=== PATIENT | female | born 1955 | race Caucasian/White ===

== ENCOUNTER 2024-05-23 07:47 | Outpatient (CLI) | payer OTHER, SELFPAY ==
--- NOTE | ~2024-05-23 | CT_ITS ---
CT abdomen pelvis w con Ordering provider: Eloisa Perez, TARIK History: 69 years Female with . PULMONARY EMBALISM . Comparison: None. Technique: CT abdomen and pelvis with IV and without oral contrast. Automated exposure control and it erative reconstruction technique were employed. The dose-length product was 948.88 mGy-cm. 100 mL Omn ipaque 350 was given IV. Findings: VISUALIZED LOWER CHEST: Minimal dependent atelectatic changes. UPPER ABDOMINAL ORGANS: Liver: Normal. Gallbladder: Status post cholecystectomy. Spleen: 1.5 cm Enhancing lesion seen in the spleen which may be a hemangioma. Follow-up advised. Nathanael gn calcifications are seen. Stomach/duodenum: Small sliding hiatus hernia.. Pancreas: Normal. Adrenals: Normal. Kidneys: Small cysts in the upper poles are noted. PELVIC ORGANS: The bladder is normal. BOWEL AND MESENTERY: Colon: No evidence of diverticulitis. Normal appendix. Small Bowel: Normal. No obstruction. Peritoneum/mesentery: No free air or free fluid. No mesenteric lymphadenopathy. RETROPERITONEUM: Mild atheromatous disease of the abdominal aorta. No retroperitoneal lymphadenopat hy. MUSCULOSKELETAL: Superficial soft tissues: The superficial soft tissues are normal. Bones: Age appropriate degenerative changes of the spine. Bilateral sacroiliitis. Levoscoliosis. IMPRESSION: 1. No evidence of appendicitis, diverticulitis or intestinal obstruction. 2. 1.5 cm enhancing lesion in the spleen which may be a hemangioma. Follow-up advised. 3. Small sliding hiatus. Reviewed, dictated and finalized at location A. SUPERVISOR
[2024-05-23 08:11] LABS: Estimated Glomerular Filt Rate > 60
--- OUTSIDE RECORDS SUMMARY | 2024-05-30 01:15 | XMS_ITS | Clinical Summary ---
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
--- OUTSIDE RECORDS SUMMARY | 2024-05-30 01:15 | XMS_ITS | Clinical Summary ---
Author Organization [facility] Address [address] [place] [address]. [place] [address] [place] [address] Care Team Providers Care Customer Support Associate Name Role Phone Ramone Partida MD, [facility] Primary Care Provider [phone] Allergies No known active allergies Medications apixaban (ELIQUIS) 5 MG tablet Take 1 tablet (5 mg total) by mouth 2 (two) times daily. Active albuterol sulfate HFA 108 (90 Base) MCG/ACT inhaler Inhale 2 puffs into the lungs every 6 (six) hours as needed for Wheezing or Shortness of breath. Active amLODIPine (NORVASC) 10 MG tablet Take 1 tablet (10 mg total) by mouth daily. Active empagliflozin (JARDIANCE) 10 MG tablet Take 1 tablet (10 mg total) by mouth daily. Active FLUoxetine (PROZAC) 20 MG capsule Take 2 capsules (40 mg total) by mouth daily. Active SEMAGLUTIDE,0.2 5 OR 0.5MG/DOS, SC Inject 0.5 mg into the skin once a week. Active tiotropium bromide-olodate rol (STIOLTO RESPIMAT) 2.5-2.5 MCG/ACT inhaler Inhale 2 puffs into the lungs daily. Active atenolol (TENORMIN) 50 MG tablet Take 1 tablet (50 mg total) by mouth daily. Hold for HR <60 30 tablet 4 Active losartan (COZAAR) 100 MG tablet Take 1 tablet (100 mg total) by mouth daily. 30 tablet 4 Active Active Problems Problem Noted Date Diagnosed Date Primary hypertension 04/23/2024 Type 2 diabetes mellitus wit hout complication, without long-term current use of insulin ([facility]) 04/23/2024 Pneumonia 04/22/2024 TIA (transient ischemic attack) 04/22/2024 Encounters Date Type Department Care Team Description 05/17/2024 Telephone [facility] [place] [address] [place] [address] Philly Ford, RMA Consult 04/22/2024 7:58 PM BOX CAR WASHER - 04/24/2024 1:59 PM BOX CAR WASHER Hospital Encounter [facility] Med/Surg [address] [place] [address] Rosanna Alva MD Dodt, Karma R, FUNCTIONAL DIRECTOR Discharge Disposition: Home or Self Care (Routine Discharge) 04/22/2024 12:49 PM BOX CAR WASHER - 04/22/2024 7:21 PM BOX CAR WASHER Emergency [facility] Emergency Services [facility] [place] [address] Sherrill Phillip DO Neurologic Problem Discharge Disposition: Transfer to Acute Care Hospital 04/22/2024 Travel from Last 3 Months Social History Tobacco Use Types Packs/Day Years Used Date Smoking Tobacco: Never Passive Smoke Exposure: Never Smokeless Tobacco: Never Tobacco Cessation:Counseling Given: Not Answered Alcohol Use Standard Drinks/Week Comments Not Currently 0 (1 standard drink = 0.6 oz pur e alcohol) [facility] Utilities Answer Date Recorded In the past 12 months has [facility] [employer], gas, oil, or water [employer] threatened to shut off services in your home? No 04/22/2024 Humiliation, Afraid, Rape, and Kick questionnair e Answer Date Recorded Within the last year, have y ou been afraid of your partner or ex-partner? No 04/22/2024 Within the last year, have y ou been humiliated or emotionally abused in other ways by your partner or ex-partner? No Within the last year, have y ou been kicked, hit, slapped, or otherwise physically hurt by your partner or ex-partner? No 04/22/2024 Within the last year, have y ou been raped or forced to have any kind of sexual activity by your partner or ex-partner? No 04/22/2024 Overall Financial Resource Strain (CARDIA) Answe r Date Recorded How hard is it for you to pa y for the very basics like food, housing, medical care, and heating? Not hard at all 04/22/2024 Hunger Vital Sign Answer Date Recorded Within the past 12 months, y ou worried that your food would run out before you got the money to buy more. Never true 04/22/20 24 Within the past 12 months, t he food you bought just didn't last and you didn't have money to get more. Never true 04/22/2024 PRAPARE - Transportation Answer Date Re corded In the past 12 months, has l ack of transportation kept you from medical appointments or from getting medications? No 04/07 In the past 12 months, has l ack of transportation kept you from meetings, work, or from getting things needed for daily living? No 04/22/2024 Housing Stability Vital Sign Answer Michael e Recorded In the last 12 months, was t here a time when you were not able to pay the mortgage or rent on time? No 04/22/2024 In the past 12 months, how m any times have you moved where you were living? 1 04/22/2024 At any time in the past 12 m [facility], were you homeless or living in a alf (including now)? No 04/22/2024 Comments Unknown Sex and Gender Information Value Date Recorded Sex Assigned at Not on file Legal Sex Female 12:49 PM BOX CAR WASHER Gender Identity Not on file Sexual Orientation Not on file Last Filed Vital Signs Vital Sign Reading Time Taken Comments Blood Pressure 117/65 04/24/2024 12:30 PM BOX CAR WASHER Pulse 69 04/24/2024 12:30 PM BOX CAR WASHER Temperature 36.3 ??C (97.4 ??F) 04/24/2024 1 0:50 AM BOX CAR WASHER Respiratory Rate 16 04/24/2024 12:3 0 PM BOX CAR WASHER Oxygen Saturation 94% 04/24/2024 12: 30 PM BOX CAR WASHER Inhaled Oxygen Concentration - - Weight 103.1 kg (227 lb 4.7 oz) 04/24/2024 4:15 AM BOX CAR WASHER Height 160 cm (5' 3 ) 04/22/2024 8:02 PM BOX CAR WASHER Body Mass Index 40.26 04/22/2024 8:02 PM BOX CAR WASHER Plan of Treatment Upcoming Encounters Date Type Department Care Team (Late st Contact Info) Description 07/02/2024 1:40 PM BOX CAR WASHER Office Visit [facility] [address] [phone] Burt Mercado MD [address] [place] [id number] Health Maintenance Due Date Last Done Comments ASCVD Statin 1955 Kidney Health Evaluation 1955 Pneumococcal Vaccine: 65+ Ye ars (1 of 2 - PCV) 1963 PHQ-2 (Physician [place]) 1969 Diabetes: Retinopathy Eye Exam 1975 Hepatitis C 1975 DTaP, Tdap and Td Vaccines ( 1 - Tdap) 1976 Mammogram Screening 1997 Zoster Vaccines (1 of 2) 2007 RSV Immunization or 60+ Years (1 - Risk 60-74 years 1-dose series) 2017 Dexa Scan (General) 2022 COVID-19 Vaccine (1 - 2023-2 5 season) 2024 Influenza Adult (#1) 2024 Hemoglobin A1C 10/22/2024 04/23/2024 Lipid Panel 04/23/2025 04/23/2024 Colorectal Cancer Screening Colonoscopy (10 Years) 09/20/2033 09/21/2023 Meningococcal B Vaccine Aged Out No l onger eligible based on patient's age to complete this topic Meningococcal Vaccine Aged Out No lisette ana maria eligible based on patient's age to complete this topic RSV Immunizations Under 20 Months Aged Out No longer eligible based on patient's age to complete this topic Procedures Procedure Name Priority Date/Time Associated Diagnosis Comments POCT GLUCOSE - OBRIEN DOCKED DEVICE Routine 04/24/2024 10:55 AM BOX CAR WASHER POCT GLUCOSE - OBRIEN DOCKED DEVICE Routine 04/24/2024 7:39 AM BOX CAR WASHER MAGNESIUM Routine 04/24/2024 5:21 AM BOX CAR WASHER CBC W/DIFF AUTOMATED Routine 04/24/2024 5:21 AM BOX CAR WASHER BASIC METABOLIC PANEL Routine 04/24/2024 5:21 AM BOX CAR WASHER POCT GLUCOSE - OBRIEN DOCKED DEVICE Routine 04/23/2024 8:00 PM BOX CAR WASHER MRI BRAIN WO CON RASHEED 04/23/2024 5:11 PM BOX CAR WASHER POCT GLUCOSE - OBRIEN DOCKED DEVICE Routine 04/23/2024 4:02 PM BOX CAR WASHER POCT GLUCOSE - OBRIEN DOCKED DEVICE Routine 04/23/2024 11:06 AM BOX CAR WASHER USE ECHOCARDIOGRAM Routine 04/23/2024 9: 05 AM BOX CAR WASHER ECG 12-LEAD STAT 04/23/2024 8:[address] HEAD WO CON STAT 04/23/2024 8:33 AM BOX CAR WASHER POCT GLUCOSE - OBRIEN DOCKED DEVICE Routine 04/23/2024 7:33 AM BOX CAR WASHER TROPONIN, QUANT STAT 04/23/2024 5:50 AM BOX CAR WASHER TSH W/REFLEX Routine 04/23/2024 5:50 AM BOX CAR WASHER MAGNESIUM Routine 04/23/2024 5:50 AM BOX CAR WASHER CBC W/DIFF AUTOMATED Routine 04/23/2024 5:50 AM BOX CAR WASHER BASIC METABOLIC PANEL Routine 04/23/2024 5:50 AM BOX CAR WASHER HEMOGLOBIN, GLYCOSYLATED Routine 04/23/2024 5:50 AM BOX CAR WASHER LIPID PANEL Routine 04/23/2024 5:50 AM BOX CAR WASHER CTA HEAD+NECK STAT 04/22/2024 2:55 PM BOX CAR WASHER POCT GLUCOSE - OBRIEN DOCKED DEVICE Routine 04/22/2024 1:[address] HEAD WO CON STAT 04/22/2024 1:24 PM BOX CAR WASHER XR CHEST PORTABLE STAT 04/22/2024 1:2 4 PM BOX CAR WASHER TROPONIN, QUANT STAT 04/22/2024 1:00 PM BOX CAR WASHER COMPREHENSIVE METABOLIC PANEL STAT 04/22/2024 1:00 PM BOX CAR WASHER CBC W/DIFF AUTOMATED STAT 04/22/2024 1:00 PM BOX CAR WASHER ECG 12-LEAD Routine 04/22/2024 12:56 PM BOX CAR WASHER COLONOSCOPY GENERIC (SCAN ORDER) 09/21/2023 from Last 3 Months or Most Recently Relevant to Health Maintenance Results * (ABNORMAL) POCT glucose (04/24/2024 10:55 AM BOX CAR WASHER) Only the most recent of7 resultswithin the time period is included. GLUCOSE POC 218(H) 70 - 110 mg/dL 04/24/2024 11:37 AM BOX CAR WASHER [facility] 04/24/2024 10:5 5 AM BOX CAR WASHER Jose R Claude FUNCTIONAL DIRECTOR POCT ORDERABLES - DEVICE Final Result [facility] [address] [place] [address], * (ABNORMAL) BASIC METABOLIC PANEL (04/24/2024 5:21 AM BOX CAR WASHER) Only the most recent of2 resultswithin the time period is included. GLUCOSE 110(H) 70 - 99 MG/DL 04/24/2024 6:56 AM BOX CAR WASHER [facility] BUN 19(H) 7 - 18 MG/DL 04/24/2024 6:56 AM BOX CAR WASHER [facility] CREATININE S/P/B 0.65 0.55 - 1.02 MG/DL 04/24/2024 6:56 AM [facility] SODIUM S/P/B 143 136 - 145 MMOL/L 04/24/2024 6:56 AM [facility] POTASSIUM S/P/B 4.1 3.5 - 5.1 MMOL/L 04/24/2024 6:56 AM [facility] CHLORIDE S/P/B 108 100 - 108 MMOL/L 04/24/2024 6:56 AM [facility] CO2 24.2 21 - 32 MMOL/L 04/24/2024 6:56 AM [facility] CALCIUM S/P/B 9.3 8.5 - 10.1 MG/DL 04/24/2024 6:56 AM [facility] ANION GAP 10.8 5 - 15 MMOL/L 04/24/2024 6:56 AM [facility] BUN CREATININE RATIO 29.2(H) 6 - 26 04/24/2024 6:56 AM [facility] GFR ESTIMATE >90 >90 ML/MIN/1.7 3 M2 04/24/2024 6:56 AM [facility] Comment: NOTE: eGFR is not calculated for patients <18 years of age. This is an estimated GFR calculation using the new CKD EPI creatinine equation without race and so does not require a correction factor for race. This estimated GFR should not be used for calculating drug doses. 04/24/2024 5:21 AM BOX CAR WASHER us Rosanna Alva MD LABORATORY Final Result [facility] [address] [place] [address], [place] [phone] * (ABNORMAL) CBC W/DIFF AUTOMATED (04/24/2024 5:21 AM BOX CAR WASHER) Only the most recent of3 resultswithin the time period is included. WBC 5.68 4.4 - 11.0 x10'3/uL 04/24/2024 6:44 AM [facility] RBC 5.12(H) 4.50 - 5.10 x10'6/uL 04/24/2024 6:44 AM [facility] HGB 14.7 12.3 - 15.3 G/DL 04/24/2024 6:44 AM [facility] HCT 45.8(H) 35.9 - 44.6 % 04/24/2024 6:44 AM [facility] MCV 89.5 80.0 - 96.0 FL 04/24/2024 6:44 AM [facility] MCH 28.7 25.3 - 30.9 PG 04/24/2024 6:44 AM [facility] MCHC 32.1 31.0 - 34.1 G/DL 04/24/2024 6:44 AM [facility] RDW 14.2 12.4 - 15.1 % 04/24/2024 6:44 AM [facility] PLT 300 151 - 353 x10'3/uL 04/24/2024 6:44 AM [facility] MPV 9.8 9.6 - 12.0 FL 04/24/2024 6:44 AM [facility] RBC MORPHOLOGY NORMAL 04/24/2024 6:44 AM [facility] PLT MORPH. NORMAL 04/24/2024 6:44 AM [facility] WBC MORPHOLOGY NORMAL 04/24/2024 6:44 AM [facility] LYMPHOCYTES % 45.1(H) 15.8 - 45.0 % 04/24/2024 6:44 AM BOX CAR WASHER [facility] NEUTROPHILS % 38.9(L) 42.1 - 71.9 % 04/24/2024 6:44 AM BOX CAR WASHER [facility] MONOCYTES % 10.2 5.7 - 12.5 % 04/24/2024 6:44 AM [facility] EOSINOPHILS 4.2 0.0 - 5.6 % 04/24/2024 6:44 AM BOX CAR WASHER [facility] BASOPHILS 1.2 0.0 - 1.3 % 04/24/2024 6:44 AM [facility] ABS. NEUTROPHILS 2.21 1.40 - 6.00 x10'3/uL 04/24/2024 6:44 AM [facility] IMMATURE GRANS % 0.4 0.0 - 0.5 % 04/24/2024 6:44 AM [facility] ABS. LYMPHOCYTES 2.56 0.80 - 4.70 x10'3/uL 04/24/2024 6:44 AM [facility] 04/24/2024 5:21 AM BOX CAR WASHER Rosanna Alva MD LABORATORY Final Result Performing Organization Address City/State/[facility] Co de Phone Number [facility] [address] [place] [address], * MAGNESIUM (04/24/2024 5:21 AM BOX CAR WASHER) Only the most recent of2 resultswithin the time period is included. MAGNESIUM 1.9 1.8 - 2.4 MG/DL 04/24/2024 6:56 AM BOX CAR WASHER [facility] 04/24/2024 5:21 AM BOX CAR WASHER Rosanna Alva MD LABORATORY Final Result [facility] [address] [place] [address], * MRI BRAIN WO CON (04/23/2024 5:11 PM BOX CAR WASHER) Anatomical Region Laterality Modality Head Magnetic Resonan ce 04/23/2024 5:40 PM BOX CAR WASHER Impressions 04/23/2024 5:43 PM BOX CAR WASHER IMPRESSION: 1. No acute intracranial abnormalities identified. No acute infarct, intracranial mass, or midline shift. 2. Small vessel disease and volume loss. Referred By: SHERRILL PHILLIP Interpreted By: Casey Rolon MD, 04/23/2024 5:40 PM Narrative 04/23/2024 5:43 PM BOX CAR WASHER [facility] [address] [facility] [place] [address] INDICATION: Right-sided weakness. Blurred vision. EXAMINATION: MRI brain without contrast. TECHNIQUE: Multiplanar and multisequence MRI images of the brain were obtained without contrast. COMPARISON: None FINDINGS: No diffusion restriction or evidence of acute infarct. No intracranial mass, mass effect, or midline shift. Patchy foci of FLAIR hyperintensity seen in the hemispheric white matter, likely due to small vessel disease. Mild to moderate volume loss with enlargement of the ventricles and extra-axial/subarachnoid spaces. No extra- axial collections. Proximal portions of the major intracranial arterial flow voids are patent. No hemorrhagic foci of susceptibility seen on gradient echo images. Craniocervical junction, sellar content, and pineal region are unremarkable. Minimal fluid scattered mastoid air cells. Mild mucosal thickening in the paranasal sinuses. Visualized orbits unremarkable. Procedure Note Casey Rolon MD - 04/23/2024 [facility] [address] [place] [address] INDICATION: Right-sided weakness. Blurred vision. EXAMINATION: MRI brain without contrast. TECHNIQUE: Multiplanar and multisequence MRI images of the brain wereobtained without contrast. COMPARISON: None FINDINGS: No diffusion restriction or evidence of acute infarct. No intracranialmass, mass effect, or midline shift. Patchy foci of FLAIR hyperintensityseen in the hemispheric white matter, likely due to small vessel disease.Mild to moderate volume loss with enlargement of the ventricles andextra-axial/subarachnoid spaces. No extra-axial collections. Proximalportions of the major intracranial arterial flow voids are patent. Nohemorrhagic foci of susceptibility seen on gradient echo images.Craniocervical junction, sellar content, and pineal region areunremarkable. Minimal fluid scattered mastoid air cells. Mild mucosalthickening in the paranasal sinuses. Visualized orbits unremarkable. IMPRESSION: 1. No acute intracranial abnormalities identified. No acute infarct,intracranial mass, or midline shift. 2. Small vessel disease and volume loss. Referred By: SHERRILL PHILLIP Interpreted By: Casey Rolon MD, 04/23/2024 5:40 PM Karma Woodall FUNCTIONAL DIRECTOR MRI Final Result * USE ECHOCARDIOGRAM (04/23/2024 9:05 AM BOX CAR WASHER) Anatomical Region Laterality Modality Cardiac Ultrasound 04/23/2024 7:25 AM BOX CAR WASHER Narrative 04/24/2024 10:13 AM BOX CAR WASHER ?MALKA ? OUTREACH Pat.Name: ??Marcelino Muhammad ?Pat.ID: ?[id number] ? St.Date: ?? 04/23/2024 ? Refer.MD: ??Outreach, [facility] Radiology Exam Time: 7:25:00 AM ?Study Type:OUTREACH ? Height: ?63 in ? Weight: ?220 lb ? BSA: ? 2.01 m2 ?Age: ??1955,68Y ? Sex: ? F ? Sonogrphr: Ls ? Pat. Stat.:Inpatient ? Room: ?116 1 ? Reason for Study:TIA/CVA ? Procedures: Study performed at [place], [place] and interpreted by [facility]. 2D, M-mode, Doppler, Color Flow, Intraveneous saline contrast was used to help determine presence of intracardiac shunting. ++++++++++++++++++++++++++++++++++++ SUMMARY: ++++++++++++++++++++++++++++++++++++ The left ventricular size is normal. No left ventricular hypertrophy. Estimated left ventricular ejection fraction is 55-60%. Left ventricular diastolic function is normal. The right ventricle size is normal. The right ventricular function is normal. Left atrial size is normal. The right atrial size is normal. The agitated saline injection showed no clear evidence of shunting into the left atrium, consistent with no patent foramen ovale. Mild tricuspid regurgitation. Ascending aorta is mildly dilated at 4.2 cm. Pulmonary artery systolic pressure is <35 mmHG. ++++++++++++++++++++++++++++++++++++ FINDINGS: ++++++++++++++++++++++++++++++++++++ LV: ? The left ventricular size is normal. No left ventricular ?hypertrophy. The left ventricular systolic function is ?normal. Estimated left ventricular ejection fraction is ?55-60%. Left ventricular diastolic function is normal. The ?average E/e' is indeterminate at 9-12 and EF is > or equal ?to 50. RV: ? The right ventricle size is normal. The right ventricular ?function is normal. LA: ? Left atrial size is normal. RA: ? The right atrial size is normal. IAS: ?The agitated saline injection showed no clear evidence of ?shunting into the left atrium, consistent with no patent ?foramen ovale. MARYAM: ? No evidence of pericardial effusion. AO: ? Ascending aorta is mildly dilated at 4.2 cm. PA: ? No evidence of pulmonary hypertension. SVn: ?Inferior vena cava is normal. AV: ? The aortic valve is trileaflet. No evidence of aortic valve ?stenosis. Trace aortic regurgitation. MV: ? The mitral valve is structurally normal. There is trace ?mitral regurgitation. PV: ? The pulmonic valve is normal There is trace pulmonic ?regurgitation TV: ? The tricuspid valve appears structurally normal. Mild ?tricuspid regurgitation. <Electronic Signature> 04/24/2024 10:13 AM Flo Jimenez M.D. Procedure Note Flo Jimenez MD - 04/24/2024 [facility] ROSE Pat.Name: Marcelino Muhammad Pat.ID: [id number] .Date: 04/23/2024 Refer.MD: Mychal, [facility] Radiology Exam Time: 7:25:00 AM Study Type:OUTREACH Height: 63 in Weight: 220 lb BSA: 2.01 m2 Age: 14 1955,68Y Sex: F Sonogrphr: Ls Pat. Stat.:Inpatient Room: 116 1 Reason for Study:TIA/CVA Procedures: Study performed at [place], [place] and interpreted by [facility]. 2D, M-mode, Doppler, Color Flow, Intraveneous saline contrast was used to help determine presence of intracardiac shunting. ++++++++++++++++++++++++++++++++++++ SUMMARY: ++++++++++++++++++++++++++++++++++++ The left ventricular size is normal. No left ventricular hypertrophy. Estimated left ventricular ejection fraction is 55-60%. Left ventricular diastolic function is normal. The right ventricle size is normal. The right ventricular function is normal. Left atrial size is normal. The right atrial size is normal. The agitated saline injection showed no clear evidence of shunting into the left atrium, consistent with no patent foramen ovale. Mild tricuspid regurgitation. Ascending aorta is mildly dilated at 4.2 cm. Pulmonary artery systolic pressure is <35 mmHG. ++++++++++++++++++++++++++++++++++++ FINDINGS: ++++++++++++++++++++++++++++++++++++ LV: The left ventricular size is normal. No left ventricular hypertrophy. The left ventricular systolic function is normal. Estimated left ventricular ejection fraction is 55-60%. Left ventricular diastolic function is normal. The average E/e' is indeterminate at 9-12 and EF is > or equal to 50. RV: The right ventricle size is normal. The right ventricular function is normal. LA: Left atrial size is normal. RA: The right atrial size is normal. IAS: The agitated saline injection showed no clear evidence of shunting into the left atrium, consistent with no patent foramen ovale. MARYAM: No evidence of pericardial effusion. AO: Ascending aorta is mildly dilated at 4.2 cm. PA: No evidence of pulmonary hypertension. SVn: Inferior vena cava is normal. AV: The aortic valve is trileaflet. No evidence of aortic valve stenosis. Trace aortic regurgitation. MV: The mitral valve is structurally normal. There is trace mitral regurgitation. PV: The pulmonic valve is normal There is trace pulmonic regurgitation TV: The tricuspid valve appears structurally normal. Mild tricuspid regurgitation. <Electronic Signature> 04/24/2024 10:13 AM Flo Jimenez M.D. us Rosanna Alva MD ECHO Final Result * ECG 12 lead (04/23/2024 8:52 AM BOX CAR WASHER) Only the most recent of2 resultswithin the time period is included. 04/23/2024 8:52 AM BOX CAR WASHER Narrative [facility] RAD - 04/24/2024 8:50 AM BOX CAR WASHER ?[facility] ? Test Date: ?2024-04-23 Pat Name: ? MARCELINO MUHAMMAD ?Department: ?? 85 ? Room: ? 1161 Gender: ? Female ? Freight Brakeman: ?? : ?1955 ? Requested By: KARMA WOODALL Order Number: [id number] ? Reading : ?? Sherrill Abad ? Measurements Intervals ?[place] ? Rate: ? 64 ? P: ?35 SC: ? 163 ?QRS: ?8 QRSD: ? 96 ? T: ?33 QT: ? 413 ? QTc: ?427 ? Interpretive Statements SINUS RHYTHM Compared to ECG 04/22/2024 12:56:40 Sinus bradycardia no longer present Short SC interval no longer present CAR WASHER Procedure Note Sherrill Abad MD - 04/24/2024 [facility] Test Date: 2024-04-23 Pat Name: MARCELINO MUHAMMAD Department: 85 Room: 1161 Gender: Female Freight Brakeman: : 1955 Requested By: KARMA WOODALL Order Number: [id number] Reading MD: Sherrill Abad Measurements Intervals [place] Rate: 64 P: 35 SC: 163 QRS: 8 QRSD: 96 T: 33 QT: 413 QTc: 427 Interpretive Statements SINUS RHYTHM Compared to ECG 04/22/2024 12:56:40 Sinus bradycardia no longer present Short SC interval no longer present CAR WASHER us Karma Woodall FUNCTIONAL DIRECTOR ECG ORDERABLES Final Result [facility] ([facility] RAD * CT HEAD WO CON (04/23/2024 8:33 AM BOX CAR WASHER) Only the most recent of2 resultswithin the time period is included. Anatomical Region Laterality Modality Head Computed Tomogra phy 04/23/2024 8:42 AM BOX CAR WASHER Impressions 04/23/2024 8:47 AM BOX CAR WASHER =====IMPRESSION:===== No evidence of acute intracranial hemorrhage, mass effect, or midline shift. ??. Ordered By: ROSANNA ALVA Interpreted By: Nadia Teixeira, 04/23/2024 8:42 AM Narrative 04/23/2024 8:47 AM BOX CAR WASHER [facility] [address] [address] [place] [id number] EXAMINATION: ??CT OF THE HEAD WITHOUT CONTRAST EXAM DATE/TIME: 04/23/2024 7:31 AM REASON FOR EXAM: ??eval for hemorrhage prior to DOAC resumption ? Headaches. Dizziness. COMPARISON: 04/22/2024 TECHNIQUE: Noncontrast CT examination of the head was performed with axial images obtained. ??A dose lowering technique was used for this procedure, which may include, but is not limited to, dose reduction technique, automated exposure control, iterative reconstruction, ALARA (As Low As Reasonably Achievable), or Image Gently techniques. FINDINGS: No evidence of scalp hematoma or significant soft tissue swelling. Limited evaluation of the paranasal sinuses and mastoids is unremarkable. Intracranially, no evidence of hemorrhage, mass effect, or midline shift. Mild small vessel ischemic change and mild brain volume loss. Mild intracranial vascular calcifications. Posterior cranial fossa are unremarkable. Procedure Note Yadiel Teixeira MD - 04/23/2024 [facility] [address] [address] [place] [address] EXAMINATION: CT OF THE HEAD WITHOUT CONTRAST EXAM DATE/TIME: 04/23/2024 7:31 AM REASON FOR EXAM: eval for hemorrhage prior to DOAC resumption Headaches. Dizziness. COMPARISON: 04/22/2024 TECHNIQUE: Noncontrast CT examination of the head was performed with axialimages obtained. A dose lowering technique was used for this procedure,which may include, but is not limited to, dose reduction technique,automated exposure control, iterative reconstruction, ALARA (As Low AsReasonably Achievable), or Image Gently techniques. FINDINGS: No evidence of scalp hematoma or significant soft tissue swelling. Limited evaluation of the paranasal sinuses and mastoids isunremarkable. Intracranially, no evidence of hemorrhage, mass effect, or midlineshift. Mild small vessel ischemic change and mild brain volume loss. Mildintracranial vascular calcifications. Posterior cranial fossa are unremarkable. =====IMPRESSION:===== No evidence of acute intracranial hemorrhage, mass effect, or midlineshift. . Ordered By: ROSANNA ALVA Interpreted By: Nadia Teixeira, 04/23/2024 8:42 AM us Rosanna Alva MD CT Final Result * TSH W/REFLEX (04/23/2024 5:50 AM BOX CAR WASHER) TSH 1.680 0.358 - 3.74 uIU/ML 04/23/2024 6:36 AM BOX CAR WASHER [facility] Comment: HIGH DOSES OF BIOTIN MAY INTERFERE WITH THIS TEST RESULT. CORRELATION TO CLINICAL HISTORY AND PRESENTATION RECOMMENDED. FREE T4 NOT INDICATED 04/23/2024 5:50 AM BOX CAR WASHER Rosanna Alva MD LABORATORY Final Result Performing Organization Address [facility]/ZIP Co de Phone Number [facility] [address] [place] [address], [place] [phone] * (ABNORMAL) HEMOGLOBIN, GLYCATED (04/23/2024 5:50 AM BOX CAR WASHER) HGB A1C 7.1(H) <5.7 % 04/23/2024 7:12 AM BOX CAR WASHER [facility] Comment: INCREASED RISK OF DIABETES <5.7% ?NON-DIABETES 5.7-6.4% INCREASED RISK FOR FUTURE DIABETES > OR = 6.5 CONSISTENT WITH DIABETES STANDARDS OF MEDICAL CARE IN DIABETES-2010 DIABETES CARE, 33(SUPP 1): S1-S61,2009 ESTIMATED AVG GLUCOSE 157 mg/dL 04/23/2024 7:12 AM BOX CAR WASHER [facility] 04/23/2024 5:50 AM BOX CAR WASHER Rosanna Alva MD LABORATORY Final Result Performing Organization Address City/[facility]/ZIP Co de Phone Number [facility] [address] [place] [address], [place] [phone] * (ABNORMAL) LIPID PANEL (04/23/2024 5:50 AM BOX CAR WASHER) CHOLESTEROL 192 <200.0 MG/DL 04/23/2024 6:36 AM [facility] TRIGLYCERIDES 118 <150 MG/DL 04/23/2024 6:36 AM [facility] HDL 47 >40.0 MG/DL 04/23/2024 6:36 AM [facility] LDL (CALCULATED) 121(H) <100 MG/DL 04/23/2024 6:36 AM [facility] NON HDL CHOLESTEROL 145(H) <130 MG/DL 04/23/2024 6:36 AM [facility] CHOL/HDL RATIO 4.1 0.0 - 4.5 04/23/2024 6:36 AM [facility] VLDL CALCULATION 24 5 - 55 MG/DL 04/23/2024 6:36 AM [facility] LIPID INTERPRETATION 04/23/2024 6:36 AM [facility] Comment: [facility] CONCENSUS REPORT RECOMMENDATIONS: ?ADULT ?CHILD ??LOW RISK: ?CHOLESTEROL ? <200 ? <170 ?TRIGLYCERIDE ?<150 ?--- ?HDL ? >=60 ?--- ?LDL ? <100 ? <110 ??BORDERLINE: ?CHOLESTEROL ? 200-239 ?? 170-199 ?TRIGLYCERIDE ?150-199 ? --- ?HDL ?40-59 ?--- ?LDL ? 100-159 ?? 110-129 ??HIGH RISK: ?CHOLESTEROL ? >=240 ?>=200 ?TRIGLYCERIDE ?>=200 ? --- ?HDL ?<40 ?--- ?LDL ? >=160 ?>=130 04/23/2024 5:50 AM BOX CAR WASHER Rosanna Alva MD LABORATORY Final Result Performing Organization Address [facility] de Phone Number [facility] [address] [place] [address], * TROPONIN, QUANT (04/23/2024 5:50 AM BOX CAR WASHER) Only the most recent of2 resultswithin the time period is included. TROPONIN I HIGH SENSITIVITY 6 0 - 50 ng/L 04/23/2024 9:10 AM BOX CAR WASHER [facility] Comment: HIGH DOSES OF BIOTIN, TROPONIN-SPECIFIC AUTOANTIBODIES, AND ANTIBODY THERAPY CONTAINING HAMA MAY INTERFERE WITH THIS TEST RESULT. CORRELATION TO CLINICAL HISTORY AND PRESENTATION RECOMMENDED. 04/23/2024 5:50 AM BOX CAR WASHER Karma Woodall APRN LABORATORY Final Result Performing Organization Address [facility] de Phone Number [facility] [address] [place] [address], * CTA HEAD+NECK (04/22/2024 2:55 PM BOX CAR WASHER) Anatomical Region Laterality Modality Head, Neck Computed Tomogra phy 04/22/2024 3:13 PM BOX CAR WASHER Impressions 04/22/2024 3:19 PM BOX CAR WASHER IMPRESSION: 1. No large vessel intracranial occlusion identified. 2. No hemodynamically significant stenosis in the neck. 3. Multifocal atherosclerotic disease as detailed above. 4. Ascending aortic ectasia, 4.2 cm. Ordered By: SHERRILL PHILLIP Interpreted By: Casey Rolon MD, 04/22/2024 3:13 PM Narrative 04/22/2024 3:19 PM BOX CAR WASHER [address] [place] [address] DATE: 04/22/2024 2:37 PM INDICATION: Blurred vision. TIA. Speech difficulties. EXAMINATION: CT angiography of the head and neck with contrast. TECHNIQUE: CT angiography of the head and neck were performed after uneventful intravenous administration of 100mL IOPAMIDOL 76 % IV SOLN. CT dose reduction techniques were utilized. Internal carotid stenosis measured according to NASCET criteria. Axial and 3-D/MIP images were reconstructed and reviewed. A dose lowering technique was used for this procedure, which may include, but is not limited to, dose reduction technique, automated exposure control, the use of iterative reconstruction, and ALARA (As Low As Reasonably Achievable) / Image Gently techniques. COMPARISON: None. ? FINDINGS: CTA NECK: Aorta and great vessel origins: There is variant 4 vessel aortic arch origin anatomy with the left vertebral artery originating off of the arch. Ascending aortic ectasia, 4.2 cm. Atherosclerotic calcifications noted along the aorta and mediastinal great vessels, without significant stenosis. Right carotid artery: No significant stenosis. Vascular tortuosity. Left carotid artery: No significant stenosis. Vascular tortuosity. Right vertebral artery: No significant stenosis. Left vertebral artery: Developmentally smaller in caliber than the right. No significant stenosis. CTA HEAD: Atherosclerotic calcifications noted along the intracranial ICA segments, without significant narrowing. Right RUPERT A1 segment is slightly smaller in caliber than the left. Proximal portions of the anterior and middle cerebral arteries are otherwise patent. Anterior communicating artery is patent. Posterior circulation is codominant. Basilar artery patent to the terminus. /partial configuration of the posterior cerebral arteries with hypoplastic P1 segments and patent posterior communicating arteries. Proximal portions of the posterior cerebral arteries, superior cerebellar arteries, and PICA branches are patent. SOFT TISSUES: Small vessel disease and volume loss. Streak artifact from dental amalgam partially obscures assessment. Degenerative changes noted in the spine. Procedure Note Casey Rolon MD - 04/22/[address] [place] [address] DATE: 04/22/2024 2:37 PM INDICATION: Blurred vision. TIA. Speech difficulties. EXAMINATION: CT angiography of the head and neck with contrast. TECHNIQUE: CT angiography of the head and neck were performed afteruneventful intravenous administration of 100mL IOPAMIDOL 76 % IV SOLN. CTdose reduction techniques were utilized. Internal carotid stenosismeasured according to NASCET criteria. Axial and 3-D/MIP images werereconstructed and reviewed. A dose lowering technique was used for this procedure, which may include,but is not limited to, dose reduction technique, automated exposurecontrol, the use of iterative reconstruction, and ALARA (As Low AsReasonably Achievable) / Image Gently techniques. COMPARISON: None. FINDINGS: CTA NECK: Aorta and great vessel origins: There is variant 4 vessel aortic archorigin anatomy with the left vertebral artery originating off of the arch.Ascending aortic ectasia, 4.2 cm. Atherosclerotic calcifications notedalong the aorta and mediastinal great vessels, without significantstenosis. Right carotid artery: No significant stenosis. Vascular tortuosity. Left carotid artery: No significant stenosis. Vascular tortuosity. Right vertebral artery: No significant stenosis. Left vertebral artery: Developmentally smaller in caliber than the right.No significant stenosis. CTA HEAD: Atherosclerotic calcifications noted along the intracranial ICA segments,without significant narrowing. Right RUPERT A1 segment is slightly smaller incaliber than the left. Proximal portions of the anterior and middlecerebral arteries are otherwise patent. Anterior communicating artery ispatent. Posterior circulation is codominant. Basilar artery patent to theterminus. /partial configuration of the posterior cerebralarteries with hypoplastic P1 segments and patent posterior communicatingarteries. Proximal portions of the posterior cerebral arteries, superiorcerebellar arteries, and PICA branches are patent. SOFT TISSUES: Small vessel disease and volume loss. Streak artifact from dental amalgampartially obscures assessment. Degenerative changes noted in the spine. IMPRESSION: 1. No large vessel intracranial occlusion identified. 2. No hemodynamically significant stenosis in the neck. 3. Multifocal atherosclerotic disease as detailed above. 4. Ascending aortic ectasia, 4.2 cm. Ordered By: SHERRILL PHILLIP Interpreted By: Casey Rolon MD, 04/22/2024 3:13 PM Sherrill Phillip DO CT Final Result * XR CHEST PORTABLE (04/22/2024 1:24 PM BOX CAR WASHER) Anatomical Region Laterality Modality Chest Computed Tomogra phy 04/22/2024 1:50 PM BOX CAR WASHER Impressions 04/22/2024 1:51 PM BOX CAR WASHER IMPRESSION: SUSPECTED LEFT BASE INFILTRATE AND/OR ATELECTASIS. Referred By: ?? Interpreted By: Sherrill Torres MD, 04/22/2024 1:50 PM Narrative 04/22/2024 1:51 PM BOX CAR WASHER [address] [place] [address] EXAM: XR CHEST PORTABLE INDICATION: Chest pain. TECHNIQUE: AP chest radiograph submitted. COMPARISON EXAM: None FINDINGS: There is some suspected infiltrate and/or atelectatic change in the left base. ??No definite pleural effusion. ??Heart size and pulmonary vascular caliber is magnified by technique. ??Skeletal structures are grossly intact. Procedure Note Sherrill Torres MD - 04/22/[address] [place] [address] EXAM: XR CHEST PORTABLE INDICATION: Chest pain. TECHNIQUE: AP chest radiograph submitted. COMPARISON EXAM: None FINDINGS: There is some suspected infiltrate and/or atelectatic change inthe left base. No definite pleural effusion. Heart size and pulmonaryvascular caliber is magnified by technique. Skeletal structures aregrossly intact. IMPRESSION: SUSPECTED LEFT BASE INFILTRATE AND/OR ATELECTASIS. Referred By: Interpreted By: Sherrill Torres MD, 04/22/2024 1:50 PM Sherrill Phillip DO GENERAL IMAGING Final Result * (ABNORMAL) COMPREHENSIVE METABOLIC PANEL (04/22/2024 1:00 PM BOX CAR WASHER) [facility] GLUCOSE 153(H) 70 - 99 MG/DL 04/22/2024 2:57 PM BOX CAR WASHER [facility] BUN 17 7 - 18 MG/DL 04/22/2024 2:57 PM BOX CAR WASHER [facility] CREATININE S/P/B 0.94 0.50 - 1.20 MG/DL 04/22/2024 2:57 PM BOX CAR WASHER [facility] SODIUM S/P/B 142 136 - 145 MMOL/L 04/22/2024 2:57 PM BOX CAR WASHER [facility] POTASSIUM S/P/B 4.1 3.5 - 5.1 MMOL/L 04/22/2024 2:57 PM BOX CAR WASHER [facility] CHLORIDE S/P/B 108 100 - 108 MMOL/L 04/22/2024 2:57 PM [facility] CO2 24.8 21.0 - 32.0 MMOL/L 04/22/2024 2:57 PM BOX CAR WASHER [facility] CALCIUM S/P/B 9.1 8.5 - 10.1 MG/DL 04/22/2024 2:57 PM [facility] BILIRUBIN TOTAL S/P/B 0.4 0.2 - 1.2 MG/DL 04/22/2024 2:57 PM [facility] Comment: THIS ASSAY IS NOT RECOMMENDED FOR PATIENTS UNDERGOING TREATMENT WITH ELTROMBOPAG DUE TO THE POTENTIAL FOR FALSELY ELEVATED RESULTS. TOTAL PROTEIN S/P/B 7.2 6.4 - 8.2 G/DL 04/22/2024 2:57 PM BOX CAR WASHER [facility] ALBUMIN S/P/B 3.3(L) 3.4 - 5.0 G/DL 04/22/2024 2:57 PM BOX CAR WASHER [facility] AST 28 15 - 37 U/L 04/22/2024 2:57 PM BOX CAR WASHER [facility] ALT 38 14 - 55 U/L 04/22/2024 2:57 PM BOX CAR W[facility]ER [facility] ALKALINE PHOSPHATASE S/P/B 127 50 - 136 U/L 04/22/2024 2:57 PM BOX CAR WASHER [facility] ANION GAP 9.2 5.0 - 15.0 MMOL/L 04/22/2024 2:57 PM BOX CAR WASHER [facility] BUN CREATININE RATIO 18.1 6 - 26 04/22/2024 2:57 PM BOX CAR WASHER [facility] A/G RATIO 0.8(L) 1.0 - 2.5 RATIO 04/22/2024 2:57 PM BOX CAR WASHER [facility] GFR ESTIMATE 67(L) >90 ML/MIN/1.7 3 M2 04/22/2024 2:57 PM BOX CAR WASHER [facility] Comment: NOTE: eGFR is not calculated for patients <18 years of age or gender unknown. This is an estimated GFR calculation using the new CKD EPI creatinine equation without race and so does not require a correction factor for race. This estimated GFR should not be used for calculating drug doses. 04/22/2024 1:00 PM BOX CAR WASHER Sherrill Phillip DO LABORATORY Final Result [facility] [address] [facility] [place] [address], * COLONOSCOPY GENERIC (SCAN ORDER) (09/21/2023) 09/21/2023 [facility] Scanned SCANNING Final Resu lt from Last 3 Months or Most Recently Relevant to Health Maintenance Insurance [address] [place], [place] [address]CARE MEDICARE PART A * [facility] Account Type Relation to Patient Date of Phone Billing Address Personal/Family inmate [address] [place] [address] Advance Directives * Full Code (Latest Code Status on File) Date Activated Date Inactivated Comments 04/23/2024 2:26 PM 04/24/2024 4:04 PM Care Teams Customer Support Associate Relationship Specialty Start Date End Date Romaine Pack MD [facility] [address] [place] [address] PCP - General INTERNAL MEDICINE 04/22/24
== END 2024-05-23 07:48 | disposition home or self-care (01) ==
PROVIDERS: Visit Provider Physician Assistant
DX: D73.89 Other diseases of spleen (principal); K44.9 Diaphragmatic hernia without obstruction or gangrene; I26.99 Other pulmonary embolism without acute cor pulmonale
CPT/HCPCS: 74177; Q9967

== ENCOUNTER 2024-10-01 13:19 | Outpatient (CLI) | payer OTHER, SELFPAY ==
--- NOTE | ~2024-10-01 | CT_ITS ---
CT of the Abdomen and Pelvis: Indication: Lesion in the spleen Technique: 2.5 mm axial scans were obtained through the abdomen and pelvis prior to and following in travenous administration of 100 cc of Omnipaque 350. Dose reduction technique was used on this scan b y utilizing automated exposure control and iterative reconstruction technique. The dose-length produc t (DLP) was 2607.52 mGy-cm. COMPARISON: 05/23/2024 Findings: Scans through the lung bases are unremarkable. The liver, pancreas, adrenals and kidneys are within normal limits. Cholecystectomy clips are present . Splenic granulomas are present. There is a 1.7 cm lesion at the upper aspect of the spleen, with ex tensive peripheral arterial phase enhancement and more diffuse enhancement on portal venous phase cezar ges (series 8 image 15). No evidence of aortic aneurysm. No lymphadenopathy. No bowel obstruction or bowel wall thickening. There is no evidence to suggest acute appendicitis. Images through the pelvis were performed. Urinary bladder unremarkable. No pelvic mass seen. No ascit es. Impression: 1.7 cm enhancing lesion at the upper spleen, stable from prior exam. This is most likely a benign les ion, possibly hemangioma. Reviewed, dictated and finalized at [facility]. Impression: 1.7 cm enhancing lesion at the upper spleen, stable from prior exam. This is mo st likely a benign lesion, possibly hemangioma.
--- OUTSIDE RECORDS SUMMARY | 2024-10-01 13:27 | XMS_ITS | Clinical Summary ---
Author Organization [facility] Address [address] [place] [address] Phone Care Team Providers Care Admissions Gate Attendant Name Role Phone Provider, Unknown Primary Care Provider Anmol Vo MD Unavailable Allergies No known active allergies Medications albuterol 108 (90 Base) MCG/ACT Aerosol Solution take 2 Puffs by inhalation. Active amLODIPine (NORVASC) 10 MG Tablet Take 10 mg by mouth daily. Active apixaban (ELIQUIS) 5 MG Tablet Take 5 mg by mouth 2 times daily. Active atenolol (TENORMIN) 50 MG Tablet Take 50 mg by mouth. 4 Active Empagliflozin (JARDIANCE) 10 MG Tablet Take 25 mg by mouth daily. Active losartan (COZAAR) 100 MG Tablet Take 100 mg by mouth daily. 4 Active atorvastatin (LIPITOR) 10 MG Tablet Take 10 mg by mouth nightly. Active FLUoxetine (PROzac) 20 MG Capsule Take 40 mg by mouth. 025 Discontin ued(Med List Clean Up) SEMAGLUTIDE,0. 25 OR 0.5MG/DOS, SC 0.5 mg by Subcutaneous route once a week. 025 Discontin ued(Med List Clean Up) Active Problems Problem Noted Date Diagnosed Date Primary hypertension 04/23/2024 Encounters Date Type Department Care Team Description 09/02/2024 12:15 PM CDT Clinical Support [facility] [address] [place] [address] Nurse, Cc Lamy Recurrent deep vein thrombosis (DVT) (HCC) (Primary Dx); Recurrent pulmonary embolism (HCC); Current use of fpc anticoagulation 09/02/2024 12:00 PM CDT Office Visit [facility] [address] [place] [address] Anmol Krause MD Recurrent deep vein thrombosis (DVT) (HCC) (Primary Dx); Recurrent pulmonary embolism (HCC); Current use of exterminator helper termite anticoagulation 09/02/2024 Travel from Last 3 Months Family History Medical History Relation Name Comments Pancreatic Cancer Maternal Grandmother Relation Name Status Comments Father Maternal Grandmother Mother Social History Tobacco Use Types Packs/Day Years Used Date Smoking Tobacco: Never Smokeless Tobacco: Never Tobacco Cessation:Counseling Given: No Alcohol Use Standard Drinks/Week Comments Never 0 (1 standard drink = 0.6 oz pur e alcohol) Sexually Active Control Partners Comments Never Comments Unknown Sex and Gender Information Value Date Recorded Sex Assigned at Not on file Legal Sex Female 2:27 PM [employer] Gender Identity Not on file Sexual Orientation Not on file Last Filed Vital Signs Vital Sign Reading Time Taken Comments Blood Pressure 122/80 09/02/2024 11:33 AM CDT Pulse 65 09/02/2024 11:33 AM CDT Temperature 36.8 C (98.2 F) 09/02/2024 11:33 AM CDT Respiratory Rate - - Oxygen Saturation 96% 09/02/2024 11:33 AM CDT Inhaled Oxygen Concentration - - Weight 103.4 kg (228 lb) 09/02/2024 11:33 AM CDT Height 160 cm (5' 3 ) 09/02/2024 11:33 AM CDT Body Mass Index 40.39 09/02/2024 11:33 AM CDT Plan of Treatment Upcoming Encounters Date Type Department Care Team (Late st Contact Info) Description 03/03/2025 11:15 AM CDT Office Visit [facility] [address] [place] [id number] Anmol Krause MD [address] [place] [address] [id number] Health Maintenance Due Date Last Done Comments DEXA Bone Density 1955 Hepatitis C Virus (HCV) Screening 1955 Mammogram 1955 TdaP Immunization 1955 Colonoscopy 2002 Colorectal Cancer Screening 2002 Cologuard 2007 Immunochemical Fecal Occult Blood 2007 Pneumococcal Immunization (5 0+ years) (1 of 1 - PCV) 2007 Zoster Immunization (1 of 2) 2007 Respiratory Syncytial Virus (RSV) Immunization (Adult) (1 - Risk 60-74 years 1-dose series) 2017 SARS-COV-2 Immunization (1 - 2023- season) 2024 Influenza Immunization (Seas on Ended) 2025 Hepatitis B Immunization Aged Out No longer eligible based on patient's age to complete this topic Human Papillomavirus (HPV) Immunization Aged Out No longer eligible b ased on patient's age to complete this topic Meningococcal Immunization (ACWY) Aged Out No longer eligible based on patient's age to complete this topic Rotavirus Immunization Aged Out No lo nger eligible based on patient's age to complete this topic [facility] Care Teams Admissions Gate Attendant Relationship Specialty Start Date End Date Provider, Unknown UNKNOWN PCP - General 04/08/24 Anmol Krause MD [address] [place] [address] Consulting Physician Oncology 05/31/24
[2024-10-01 13:59] LABS: Estimated Glomerular Filt Rate > 60
== END 2024-10-01 13:20 | disposition home or self-care (01) ==
PROVIDERS: Visit Provider Physician Assistant
DX: D73.9 Disease of spleen, unspecified (principal)
CPT/HCPCS: 74178; Q9967